=== PATIENT | female | born 2000 | race Two or more races ===

== ENCOUNTER 2021-01-21 12:58 | Emergency (ER) | payer MEDICAID ==
[~2021-01-21] VITALS: Ht 165.1 cm; Wt 86.2 kg
[2021-01-21 15:17] VITALS: BP 118/89
[2021-01-21] MEDS ORDERED: TETRACAINE HCL 0.5% OPTH(EYE) SOLN 4ML LEFTEYE ONE (15:30)
[2021-01-21] MEDS ORDERED: FLUORESCEIN SOD OPTH TEST STRIP OP ONE (15:30)
== END 2021-01-21 16:14 | disposition home or self-care (01) ==
LOC: ER 12:58
DX: S05.02XA Injury of conjunctiva and corneal abrasion without foreign body, left eye, initial encounter (principal); Z77.098 Contact with and (suspected) exposure to other hazardous, chiefly nonmedicinal, chemicals; X58.XXXA Exposure to other specified factors, initial encounter; Y93.89 Activity, other specified; Y92.89 Other specified places as the place of occurrence of the external cause; Y99.8 Other external cause status